=== PATIENT | female | born 1965 | race Hispanic/Latino ===

== ENCOUNTER 2017-09-10 13:03 | Emergency (ER) | payer OTHER ==
[2017-09-10 13:37] LABS: APPEARANCE,URINE Clear (CLEAR); BILIRUBIN,URINE Negative (NEGATIVE); COLOR,URINE Yellow (YELLOW); GLUCOSE, URINE (UA) >=1000 mg/dL (NEGATIVE); KETONES,URINE 40 mg/dL (NEGATIVE); LEUKOCYTE ESTERASE ,URINE Negative (NEGATIVE); NITRATE,URINE Negative (NEGATIVE); OCCULT BLOOD,URINE Negative (NEGATIVE); PROTEIN,URINE POS 1+ (NEGATIVE); UROBILINOGEN,URINE 0.2 mg/dL (0.2-1.0)
[2017-09-10 13:49] LABS: BACTERIA,URINE None Seen /HPF (None Seen); HYALINE CASTS, URINE 0-1 /LPF (0-1 /LPF); RBC,URINE 0-1 /HPF (0-1); SQUAMOUS EPITHELIAL CELL,UR 0-2 /HPF (0-2); WBC,URINE 0-1 /HPF (0-1)
[2017-09-10 14:40] LABS: BASOPHILS % (AUTO) 1.2 % (0.0-5.0); EOSINOPHILS % (AUTO) 0.6 % (0.0-8.0); HEMATOCRIT 42.9 % (36-48); LYMPHOCYTES % (AUTO) 29.9 % (21.0-51.0); MEAN CORPUSCULAR HEMOGLOBIN 28.7 pg (27.0-33.0); MEAN CORPUSCULAR HGB CONC 34.2 g/dL (32.0-36.0); MEAN CORPUSCULAR VOLUME 84.1 fL (79-99); MONOCYTES % (AUTO) 5.2 % (3.0-13.0); NEUTROPHILS % (AUTO) 63.1 % (40.0-77.0); PLATELET COUNT (AUTO) 238 K/uL (130-400); RED CELL DISTRIBUTION WIDTH 13.3 % (11.0-15.5)
[2017-09-10 14:49] LABS: CREATININE 0.8 mg/dL (0.5-1.5); POTASSIUM 3.6 mmol/L (3.5-5.1)
[2017-09-10 14:54] LABS: ALBUMIN 3.7 g/dL (3.5-5.0); BILIRUBIN,TOTAL 0.7 mg/dL (0.2-1.0); TOTAL PROTEIN, SERUM 8.2 g/dL (6.0-8.3)
[2017-09-10] MEDS ORDERED: ISOVUE-370 50ML VIAL IV ONE (15:14)
[2017-09-10] MEDS ORDERED: IOPAMIDOL-370 75 ML VIAL IV ONE (15:18)
[2017-09-10] MEDS ORDERED: ACETAMINOPHEN 325 MG TAB ONE (15:45)
[2017-09-10] MEDS ORDERED: SODIUM CHLORIDE 0.9% 1000ML 1,000 ML IV ONE (16:39)
[2017-09-10] MEDS ORDERED: ORPHENADRINE CITRATE 30 MG/ML ML ONE (17:29)
== END 2017-09-10 18:22 | disposition home or self-care (01) ==
LOC: EDH 13:03
DX: S10.81XA Abrasion of other specified part of neck, initial encounter (principal); I10 Essential (primary) hypertension; E11.9 Type 2 diabetes mellitus without complications; Z88.8 Allergy status to other drugs, medicaments and biological substances; Z98.890 Other specified postprocedural states; Y04.0XXA Assault by unarmed brawl or fight, initial encounter; Y93.89 Activity, other specified; Y92.098 Other place in other non-institutional residence as the place of occurrence of the external cause; Y99.8 Other external cause status
CPT/HCPCS: 36415; 70450; 70498; 72125; 80053; 81001; 85025; 96372; 99285; J2360; J7030; Q9967

== ENCOUNTER 2021-10-03 12:24 | Emergency (ER) | payer OTHER ==
[~2021-10-03] VITALS: Ht 152.4 cm; Wt 83.9 kg
[2021-10-03 12:32] VITALS: BP 145/67
[2021-10-03 13:05] LABS: BASOPHILS % (AUTO) 0.2 % (0.0-5.0); HEMATOCRIT 51.4 % (36-48); LYMPHOCYTES % (AUTO) 10.1 % (21.0-51.0); MEAN CORPUSCULAR HEMOGLOBIN 28.4 pg (27.0-33.0); MEAN CORPUSCULAR HGB CONC 33.3 g/dL (32.0-36.0); MEAN CORPUSCULAR VOLUME 85.2 fL (79-99); MONOCYTES % (AUTO) 4.9 % (3.0-13.0); NEUTROPHILS % (AUTO) 83.8 % (40.0-77.0); PLATELET COUNT (AUTO) 320 K/uL (130-400); RED BLOOD CELL COUNT(AUTO) 6.03 MIL/uL (4.00-5.50); RED CELL DISTRIBUTION WIDTH 12.5 % (11.0-15.5); WHITE BLOOD COUNT (AUTO) 16.6 K/uL (4.8-10.8)
[2021-10-03 13:18] LABS: CREATININE 0.8 mg/dL (0.5-1.5); POTASSIUM 4.4 mmol/L (3.5-5.1)
[2021-10-03 13:23] LABS: BILIRUBIN,TOTAL 0.7 mg/dL (0.2-1.0)
[2021-10-03] MEDS ORDERED: PANTOPRAZOLE 40 MG/VIAL IVP ONE (14:00)
[2021-10-03] MEDS ORDERED: DEXAMETHASONE SOD PHOSPHATE 4 MG/ML 1ML VIAL IVP ONE (14:00)
== END 2021-10-03 15:10 | disposition home or self-care (01) ==
LOC: EDH 12:24
DX: U07.1 COVID-19 (principal); E11.9 Type 2 diabetes mellitus without complications; E78.00 Pure hypercholesterolemia, unspecified; I10 Essential (primary) hypertension
CPT/HCPCS: 36415; 71045; 80053; 84484; 85025; 85378; 87635; 87804 ×2; 93005; 96374; 96375; 99285; C9113; C9803; J1100

== ENCOUNTER 2024-10-29 13:46 | Emergency (ER) | payer BC ==
[~2024-10-29] VITALS: Ht 152.4 cm; Wt 68.9 kg
[~2024-10-29 13:46] MED LIST: ALPH600C8 PO; BENZ-39 PO; EMPA25TA PO; GUAI120015 PO; LEVO-70 PO; METF-444 PO; OMEP40CA21 PO; ONDA-104 PO; ROSU40TA88 PO
[2024-10-29 14:11] LABS: APPEARANCE,URINE CLEAR (CLEAR); BILIRUBIN,URINE NEGATIVE (NEGATIVE); COLOR,URINE LIGHT-YELLOW (YELLOW); GLUCOSE, URINE (UA) >=1000 mg/dL (NEGATIVE); KETONES,URINE NEGATIVE (NEGATIVE); LEUKOCYTE ESTERASE ,URINE NEGATIVE Leu/uL (NEGATIVE); NITRATE,URINE NEGATIVE (NEGATIVE); OCCULT BLOOD,URINE NEGATIVE (NEGATIVE); PH,URINE 5.5 (5.0-8.0); UROBILINOGEN,URINE 0.2 mg/dL (0.2-1.0)
[2024-10-29 14:12] LABS: ADD UA MICROSCOPIC YES; PROTEIN,URINE NEGATIVE (NEGATIVE)
[2024-10-29 14:13] LABS: MUCUS,URINE RARE LPF (None Seen); RBC,URINE 0-1 /HPF (0-1); SQUAMOUS EPITHELIAL CELL,UR RARE /HPF (0-2); WBC,URINE 0-1 /HPF (0-1)
[2024-10-29 14:27] LABS: COVID19 (SARS ANTIGEN RAPID) PRESUMPTIVE NEGATIVE (NEGATIVE); INFLUENZA TYPE A Negative For Type A (NEGATIVE); INFLUENZA TYPE B Negative For Type B (NEGATIVE)
--- NOTE | 2024-10-29 14:50 | ERN ---
ED Note History of Present Illness Stated Complaint: LEFT FLANK PAIN Chief Complaint: Multiple Complaints Time Seen by MD: 14:00 Time Seen by Midlevel: 14:01 Dictation: 59-year-old female presents to the emergency department due to report of having chills, sore throat and a runny nose that began 3 days ago. Patient states that she is about to finish her prescription for Cipro that was prescribed for her 5 days ago. She states that her urinary symptoms has since improved significantly. At this time, she denies having any nausea, vomiting, diarrhea, abdominal pain or flank pain associated with this. There is no report of having had contact with anybody with similar symptoms. Upon initial evaluation, the patient presents in no acute distress. 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 Home Meds Active Scripts Guaifenesin (Mucinex) 1,200 Mg Tbmp.12hr, 1 TAB PO BID for cough for 7 Days, #14 TAB 0 Refills Prov:CLAUDIO YUN MD 03/16/24 Benzonatate (Tessalon Perles) 100 Mg Cap, 100 MG PO TID, #30 CAP Prov:CLAUDIO YUN MD 03/16/24 Levofloxacin (Levofloxacin) 500 Mg Tablet, 1 TAB PO DAILY for 7 Days, #7 TAB 0 Refills Prov:CLAUDIO YUN MD 03/16/24 Reported Medications Rosuvastatin Calcium (Rosuvastatin Calcium) 40 Mg Tablet, 1 TAB PO DAILY for high cholesterol for 30 Days, #30 TAB 0 Refills 03/13/24 Empagliflozin (Jardiance) 25 Mg Tablet, 1 TAB PO DAILY for 30 Days, #30 TAB 0 Refills 03/13/24 Alpha Lipoic Acid (Alpha Lipoic Acid) 600 Mg Capsule, 1 CAP PO DAILY for 30 Days, #30 CAP 0 Refills 03/13/24 Omeprazole (Omeprazole) 40 Mg Capsule.dr, 1 CAP PO DAILY PRN for HEARTBURN for 30 Days, #30 CAP 0 Refills 03/13/24 Ondansetron HCl (Ondansetron HCl) 4 Mg Tablet, 1 TAB PO Q8HRS PRN for nausea/vomiting for 3 Days, #18 TAB 0 Refills 03/13/24 Metformin HCl (Metformin HCl) 500 Mg Tablet, 1 TAB PO BID for 30 Days, #60 TAB 0 Refills 03/13/24 Past Medical History Past Medical History: Diabetes-Type II Surgical History: History: Not Applicable RN Note Reviewed/Agreed w/PFSH: Yes Review of System Dictation Constitutional: Chills ENT: Runny nose, sore throat Initial Vital Sign VS Vital Signs Date Time Temp Pulse Resp B/P (MAP) Pulse Ox O2 Delivery O2 Flow Rate FiO2 10/29/24 13:57 100.4 115 20 139/72 97 Room Air 0 10/29/24 14:07 21 Physical Exam Dictation General: awake, alert, NAD Head/Face: Normocephalic, atraumatic Eyes: PERRL, EOMI ENT: Oral mucosa moist, erythematous pharynx Neck: Trachea midline, supple Cardiovascular: RRR, no edema Respiratory: Symmetrical, non-labored Abdomen: Soft, non-tender, non-distended, no guarding. Skin: Warm, dry, good turgor, no rash MS/Extremity: Pulses equal, no cyanosis, neurovascular intact, FROM Neuro: COAx4, GCS 15, steady gait, Psych: Normal behavior, mood, and affect normal Results (Laboratory/Radiology) Laboratory/Radiology Laboratory Tests Test 10/29/24 14:00 10/29/24 14:02 Urine Color LIGHT-YELLOW (YELLOW) Urine Appearance CLEAR (CLEAR) Urine pH 5.5 (5.0-8.0) Urine Specific [place] 1.026 (1.001-1.031) Urine Protein NEGATIVE mg/dL (NEGATIVE) Urine Glucose (UA) >=1000 mg/dL (NEGATIVE) H Urine Ketones NEGATIVE mg/dL (NEGATIVE) Urine Occult Blood NEGATIVE (NEGATIVE) Urine Nitrate NEGATIVE (NEGATIVE) Urine Bilirubin NEGATIVE mg/dL (NEGATIVE) Urine Urobilinogen 0.2 mg/dL (0.2-1.0) Urine Leukocyte Esterase NEGATIVE Davida/uL Urine RBC 0-1 /HPF (0-1) Urine WBC 0-1 /HPF (0-1) Urine Squamous Epithelial Cells RARE /HPF (0-2) Urine Bacteria None /HPF (None Seen) Influenza Type A Antigen Negative For Type A Influenza Type B Antigen Negative For Type B SARS-CoV-2 Antigen (Rapid) PRESUMPTIVE NEGATIVE Labs Reviewed?: Yes ED Course ED Course Orders Procedure Category Date Status Time Covid19 (Sars Antigen LAB 10/29/24 Complete Rapid) 13:53 Influenza Type A & B, LAB 10/29/24 Complete Rapid 13:53 Urinalysis Profile LAB 10/29/24 Complete 13:53 Acetaminophen 500mg PHA 10/29/24 In Process Tab (Tylenol 500mg T 15:00 Ibuprofen 600 Mg PHA 10/29/24 In Process Tablet (Motrin) 15:00 Current Medications Medications (Trade) Dose Ordered Sig/Jc Route PRN Reason Start Time Stop Time Status Last Admin Dose Admin Acetaminophen (TYLenol 500MG TAB) 1,000 mg ONCE ONCE PO 10/29/24 15:00 10/29/24 15:01 Ibuprofen (moTRIN) 600 mg ONCE ONCE PO 10/29/24 15:00 10/29/24 15:01 Vital Signs Date Time Temp Pulse Resp B/P (MAP) Pulse Ox O2 Delivery O2 Flow Rate FiO2 10/29/24 14:07 100.4 98 18 132/68 98 Room Air* 0 21 10/29/24 13:57 100.4 115 20 139/72 97 Room Air 0 Medical Decision Making MDM MDM: Differential diagnosis: Viral illness, influenza, COVID, acute UTI. Rationale: Tests considered and ordered secondary to shared decision making include: Previous outside records reviewed: Old ER visits. Risk of complication and/or morbidity or mortality of patient management: None Medications-Per medication reconciliation Need for hospitalization: Patient does not meet criteria for hospitalization. Need for emergency major/minor surgery: No There are no social concerns with this patient. Prescription drug management Prescriptions will include symptomatic care Patient's prior external medical records from other ER visits were reviewed by me as indicated. Prior testing and results from previous visits were reviewed. Prior tests were taken into account with medical decision making and resource utilization, independent historian/historians were used to obtain complete medical history. I independently interpreted the test that were performed, results were reviewed by me and considered findings on radiology if ordered. Medical management and examination interpretation discussions were had by me with other qualified healthcare professionals as indicated for the patient's care. DX & DISP Disposition: Discharge Departure Impression: Primary Impression: Viral illness Condition: Stable Referrals: SELF,REFERRAL (PCP) Time of Disposition: 14:51 DENG KEEN Oct 29, 2024 14:50
[2024-10-29] MEDS: acetaMINOPHEN 500 MG TABLET PO ONE (14:52)
[2024-10-29] MEDS: ibuPROFEN 600 MG TABLET PO ONE (14:53)
[2024-10-29 15:00] VITALS: BP 128/62; PULSE 92; RESP 18; TEMP 99.1; O2SAT 97
== END 2024-10-29 15:01 | disposition home or self-care (01) ==
LOC: EDH 13:46
DX: B34.9 Viral infection, unspecified (principal); E11.9 Type 2 diabetes mellitus without complications; Z20.822 Contact with and (suspected) exposure to COVID-19; Z79.84 Long term (current) use of oral hypoglycemic drugs; Z79.899 Other long term (current) drug therapy; Z88.8 Allergy status to other drugs, medicaments and biological substances; Z98.890 Other specified postprocedural states
CPT/HCPCS: 81001; 87426; 87804; 99283